=== PATIENT | female | born 1955 | race Caucasian/White ===

== ENCOUNTER 2019-04-18 17:49 | Emergency (ER) | payer SELFPAY ==
[~2019-04-18] VITALS: Ht 157.5 cm; Wt 61.2 kg
[~2019-04-18 17:49] MED LIST: ACET-7142 PO
[2019-04-18 17:59] VITALS: BP 138/72
--- NOTE | 2019-04-18 18:17 | NUR ---
C/O NAUSEA, EPIGASTRIC PAIN X 3 DAYS. NO DIARRHEA, NO FEVER. STATES ACID REFLUX SYMPTOMS NOW, DOES NOT LIKE TO TAKE PPI BECAUSE "IT HURTS MY KIDNEYS". STATES CONSTIPATION, STRAINING DURING BM. NAD, SPEAKING ON CELLPHONE. MED HX; ARTHTAIWO, GASTRITIS
--- NOTE | 2019-04-18 18:49 | NUR ---
DR. OCSBY EVALUATING PT AT BEDSIDE.
[2019-04-18 19:20] VITALS: BP 138/72
--- NOTE | 2019-04-18 19:20 | NUR ---
Patient discharged with v/s stable. Written and verbal after care instructions given and explained. Patient alert, oriented and verbalized understanding of instructions. Ambulatory with steady gait. All questions addressed prior to discharge. ID band removed. Patient advised to follow up with PMD. Rx of OMEPRAZOLE given. Patient educated on indication of medication including possible reaction and side effects. Opportunity to ask questions provided and answered.
== END 2019-04-18 19:20 | disposition home or self-care (01) ==
LOC: MED 17:49
DX: K21.9 Gastro-esophageal reflux disease without esophagitis (principal); K29.70 Gastritis, unspecified, without bleeding; K59.00 Constipation, unspecified; I10 Essential (primary) hypertension; Z79.899 Other long term (current) drug therapy
CPT/HCPCS: 81002; 99282